=== PATIENT | male | born 1990 | race Two or more races ===

== ENCOUNTER 2019-12-10 09:37 | Outpatient (CLI) | payer MEDICAID ==
[~2019-12-10] VITALS: Ht 167.6 cm; Wt 86.6 kg
[2019-12-10 09:46] VITALS: BP 116/69
[2019-12-12] MEDS ORDERED: FAMOTIDINE20 MG ORAL (08:50)
--- NOTE | 2019-12-17 | Consultation ---
DATE OF CONSULTATION: 12/10/2019 CONSULTING PHYSICIAN: Abhi Cristina MD. CHIEF COMPLAINT: GERD. HISTORY OF PRESENT ILLNESS: This is a very pleasant 29-year-old male without significant past medical history, 00:20 of chronic GERD symptoms and upper abdominal pain. PAST MEDICAL HISTORY: None. PAST SURGICAL HISTORY: None. MEDICATIONS: Mjut-ghd-cocfhre Pepto-Bismol. FAMILY HISTORY: Mother had brain tumor. SOCIAL HISTORY: The patient occasionally drinks alcohol. Denies any tobacco or IV drug abuse. ALLERGIES: No known allergies. REVIEW OF SYSTEMS: Positive for abdominal pain and GERD. PHYSICAL EXAMINATION: VITAL SIGNS: Temperature 97.8, blood pressure is 116/69, pulse is , respirations 20. HEENT: Normocephalic, atraumatic. Sclerae anicteric. NECK: Supple. No evidence of obvious lymphadenopathy. CARDIOVASCULAR: Plus S1, S2. LUNGS: Clear to auscultation bilaterally. ABDOMEN: Positive bowel sounds. Soft and nontender. No rebound. No guarding. No peritoneal sign. EXTREMITIES: No cyanosis. No clubbing. No edema. ASSESSMENT AND PLAN: This is a 29-year-old male with chronic GERD symptoms. Has never been tried on the PPI. The patient was given the prescription for omeprazole 40 mg p.o. daily. The patient was educated about reflux measures was told to come back if he is still symptomatic and at that time we will consider doing endoscopy. Abhi Cristina M.D. DR: Demetria JOB#: [id number] CC:
== END 2019-12-10 11:37 | disposition home or self-care (01) ==
LOC: PAN 09:37
DX: R10.12 Left upper quadrant pain (principal)
CPT/HCPCS: G0463

== ENCOUNTER 2020-04-01 16:34 | Emergency (ER) | payer MEDICAID ==
[~2020-04-01] VITALS: Ht 167.6 cm; Wt 72.6 kg
[~2020-04-01 16:34] MED LIST: FAMOTIDINE20 MG ORAL
--- NOTE | 2020-04-01 16:50 | NUR ---
ED Nurse Note: pt walked in from home c/o cough and SOb x 4-5 days. pt denies fevers at this time, afebrile in triage. no other complaints at this time
[2020-04-01 16:51] VITALS: BP 127/75
--- NOTE | 2020-04-01 17:02 | Emergency Room Report ---
History of Present Illness General Chief Complaint: Flu Like Symptoms Present Illness HPI Pt. presents to the ED c/o cough, fatigue, and body aches Denies fevers, chills and headaches x 1 day. He denies neck pain/stiffness or photophobia, He denies hx of asthma or COPD. He denies nasal congestion or rhinorrhea. He denies PmHx. Pt. denies taking any medications. Pt. denies rash, CP, palpitations, SOB, or dyspnea. Denies recent travel. Denies contact with persons who have tested positive for or are under investigation/quarantine for COVID-19. He denies pain. Allergies: Coded Allergies: No Known Allergies (Unverified , 12/12/19) COVID-19 Screening Contact w/high risk pt: No Experienced COVID-19 symptoms?: Yes COVID-19 Testing performed THREAD DRAWER: No Patient History Past Medical History: see triage record Past Surgical History: none Pertinent Family History: none Reviewed Nursing Documentation: PMH: Agreed; PSxH: Agreed Nursing Documentation-PMH Hx Cardiac Problems: No Hx Cancer: No Hx Gastrointestinal Problems: No Hx Neurological Problems: No Review of Systems All Other Systems: negative except mentioned in HPI Physical Exam Vital Signs Date Time Temp Pulse Resp B/P (MAP) Pulse Ox O2 Delivery O2 Flow Rate FiO2 04/01/20 16:42 98.6 89 16 127/75 (92) 98 Room Air Sp02 EP Interpretation: reviewed, normal General Appearance: no apparent distress, alert, GCS 15, non-toxic Head: normocephalic, atraumatic Eyes: bilateral eye normal inspection, bilateral eye PERRL ENT: hearing grossly normal, normal voice Neck: full range of motion Respiratory: chest non-tender, lungs clear, normal breath sounds, no wheezing, speaking full sentences Cardiovascular #1: regular rate, rhythm, normal capillary refill Musculoskeletal: normal range of motion, gait/station normal, non-tender Neurologic: alert, motor strength/tone normal, oriented x3, sensory intact, responsive, speech normal Psychiatric: judgement/insight normal Skin: no rash, normal color Lymphatic: no adenopathy Medical Decision Making PA Attestation Dr. Cleary is my supervising Physician whom patient management has been discussed with. Diagnostic Impression: Primary Impression: URI (upper respiratory infection) Qualified Codes: J06.9 - Acute upper respiratory infection, unspecified ER Course Pt. presents to the ED c/o cough, fatigue, and body aches Denies fevers, chills and headaches x 1 day. He denies PmHx. Pt. denies taking any medications. Pt. denies rash, CP, palpitations, SOB, or dyspnea. Denies recent travel. Denies contact with persons who have tested positive for or are under investigation/quarantine for COVID-19. He denies pain. Ddx considered but are not limited to URI, pneumonia, PE, strep pharyngitis, meningitis, COVID-19 Vital signs: Pt. is afebrile, the remaining VS are WNL H&PE are most consistent with URI- most likely viral in etiology. afebrile, Non- toxic in appearance, NAD, not showing signs of hypoxia or respiratory distress. ORDERS: none required at this time, the diagnosis is clinical ED INTERVENTIONS: None required at this time. --PT. EDUCATION: D/W pt. that he is having S/Sx of URI, and regardless of Etiology he is infectious, and should be responsible to take steps to reduce his possibility of transmission of an URI to other persons in the household or community. This patient was evaluated in the context of the global COVID-19 pandemic, which necessitated consideration that the patient might be at risk for infection with the SARS-COV-2 virus that causes COVID-19. Institutional protocols and algorithms that pertaining to the evaluation of patients at risk for COVID-19 are in a state of rapid change based on information released by multiple regulatory bodies including the CDC and federal and state organizations. These policies and algorithms were followed during the patient's care in the emergency department DISCHARGE: At this time pt. is stable for d/c to home. Will provide printed patient care instructions, and any necessary prescriptions. Care plan and follow up instructions have been discussed with the patient prior to discharge. Last Vital Signs Date Time Temp Pulse Resp B/P (MAP) Pulse Ox O2 Delivery O2 Flow Rate FiO2 04/01/20 16:51 98.6 86 16 127/75 98 Room Air Disposition: HOME, SELF-CARE Condition: Stable Scripts Guaifenesin/D-Methorphan Hb/Pe (ROBITUSSIN COUGH-COLD CF LIQ*) 118 Ml Liquid 5 ML ORAL Q6H PRN for FOR COUGH, #118 ML Prov: Helena Gracia 04/01/20 Patient Instructions: Cough, Adult, [id number] Additional Instructions: -I do not identify an emergent condition at this time. With current presentation, pt. is stable for close outpatient follow up and conservative treatment. D/w pt. to return promptly to ED with worsening or new symptoms.- Pt. verbalizes' understanding and agreement with proposed treatment plan. Take medications as directed. Supplemental Instructions on How to Self- Isolate when demonstrating signs and symptoms of having COVID-19, Regardless your symptoms are consistent with a respiratory infection that can spread as well. Please follow the provided instructions. Follow up with a Primary Care Provider in 3-5 days, even if your symptoms have resolved. --Please review list of primary care clinics, if you do not already have a primary care provider Return sooner to ED if new symptoms occur, or current symptoms become worse. - Please note that this Emergency Department Report was dictated using [employer] technology software, occasionally this can lead to erroneous entry secondary to interpretation by the dictation equipment. Helena Gracia Apr 01, 2020 17:02
[2020-04-01] MEDS ORDERED: ROBITUSSIN COU118 M1 ORAL (17:04)
[2020-04-01 17:10] VITALS: BP 127/75
--- NOTE | 2020-04-01 17:10 | NUR ---
ER DISCHARGE NOTE: Patient is cleared to be discharged per ERMD, pt is aox4, on room air, with stable vital signs. pt was given dc and prescription instructions, pt was able to verbalize understanding. per request pt was also provided with COVID clinic list. pt id band removed without complications. pt is able to ambulate with steady gait. pt took all belongings.
== END 2020-04-01 19:10 | disposition home or self-care (01) ==
LOC: EMR 17:00
DX: J06.9 Acute upper respiratory infection, unspecified (principal)
CPT/HCPCS: 99281